=== PATIENT | male | born 1995 | race Caucasian/White ===

== ENCOUNTER 2016-06-12 10:10 | Emergency (ER) | payer OTHER ==
--- NOTE | 2016-06-12 11:50 | EDDOCDS ---
Nurse's Notes [facility] Name: Kai Barbosa Age: 20 yrs Sex: Male : 1995 Arrival Date: 06/12/2016 Time: 10:10 Bed Triage 2 Private MD: ALISSA FIORE Diagnosis: Jaw pain-post wisdom tooth extraction Presentation: 06/12 10:22 Presenting complaint: Patient states: Pt presents with severe dental pain since wisdom dls teeth removed last week at [facility]. Adult Sepsis Screening: The patient does not have new or worsening altered mentation. Patient's respiratory rate is less than 22. Systolic blood pressure is greater than 100. Patient has a qSOFA score of 0- Negative Sepsis Screen. Suicide/Homicide risk assessment- the patient denies having any suicidal and/or homicidal ideations and does not present with any other emotional, behavioral or mental health complaints. 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 Transition of care: patient was not received from another setting of care. 10:22 Acuity: BEN Level 4 dls 10:22 Method Of Arrival: Walkin/Carried/Asstd dls Triage Assessment: 10:24 General: Appears uncomfortable, well developed, well nourished, well groomed, Behavior dls is cooperative. Pain: Pain currently is 10 out of 10 on a pain scale. HIV screening NA for this visit Offered previously. Historical: - Allergies: no known allergies; - Home Meds: 1. none - PMHx: none; - PSHx: wisdom teeth; - Social history: Smoking status: Patient uses tobacco products, current some day smoker. No barriers to communication noted, The patient speaks fluent Australian. - Family history: Not pertinent. - : The pt / caregiver states he / she is not on anticoagulants. Home medication list is obtained from the patient. - Exposure Risk Screening:: None identified. Screenin:46 Screening information is obtained from the patient. Primary language is Australian. Fall mk4 risk: No risks identified. Assistance ADL's: requires no assistance with activities of daily living. Abuse/DV Screen: The patient / caregiver reports he/she is:. Nutritional screening: No deficits noted. Advance Directives: Currently, there is no health care proxy. There is no active DNR order. There is no living will. There is no Power of Automotive Fleet Supervisor. home support is adequate. Assessment: 11:46 General: Appears uncomfortable. Pain: Complains of pain in dental Pain currently is 10 mk4 out of 10 on a pain scale. Awake, alert, oriented. Skin warm and dry. Moves all extremities. Respirations unlabored. The patient / caregiver is instructed regarding the plan of care and ED course. Physical assessment to be completed by NAIF/DONNA. Vital Signs: 10:12 BP 129 / 95; Pulse 68; Resp 18; Temp 97(O); Pulse Ox 98% on R/A; Weight 83.91 kg (R); ct3 Height 5 ft. 9 in. (175.26 cm) (R); Pain 9/10; 10:12 Body Mass Index 27.32 (83.91 kg, 175.26 cm) ct3 Vitals: 10:12 Log In Time: June 12, 2016 at 10:09. ct3 ED Course: 10:11 Patient visited by Rosana Lua PCA. ct3 10:11 [facility] is Private Physician. ct3 10:11 Patient moved to Waiting ct3 10:12 Patient moved to Pre RCE ct3 10:24 Triage Initiated dls 11:13 Patient moved to Triage 2 kcs 11:14 Patient visited by Migdalia Mari RN. mk4 11:27 Enmanuel Santos PA-C is PHCP. ar2 11:27 Keyona Coughlin MD is Attending Physician. ar2 11:27 Patient visited by Enmanuel Santos PA-C. ar2 11:39 [facility]. ar2 11:39 [facility] is Referral Physician. ar2 11:46 Accompanied by Family Member. mk4 11:48 No IV's were initiated during this patient's visit. No procedures done that require mk4 assistance. Order Results: There are currently no results for this order. Outcome: 11:39 Discharge ordered by Provider. ar2 11:46 The following High Risk Discharge criteria are identified: None. Condition: good mk4 Condition: stable. Discharge instructions given to patient, Instructed on discharge instructions, follow up and referral plans. Demonstrated understanding of instructions, medications, Pt was receptive of discharge instructions/ teaching. Prescriptions given X 3. No special radiology studies were completed. 11:49 Discharge Assessment: patient administered narcotics - no. Property sent home with mk4 patient. 11:49 Patient left the ED. mk4 Signatures: Marlene Tapia, RN RN Charla Nino RN RN Enmanuel Mora PA-C PA-C ar2 Rosana Lua, MEAT PACKER MEAT PACKER ct3 Migdalia Mari RN RN mk4 MTDD
--- NOTE | 2016-06-12 11:50 | EDDOCDS ---
Physician Documentation [facility] Name: Kai Barbosa Age: 20 yrs Sex: Male : 1995 Arrival Date: 06/12/2016 Time: 10:10 Bed Triage 2 Private MD: ALISSA FIORE Disposition: 06/12/16 11:39 Discharged to Home/Self Care. Impression: Jaw pain - post wisdom tooth extraction. - Condition is Stable. - Discharge Instructions: Dental Extraction, Care After. - Prescriptions for Augmentin 875- 125 mg Oral Tablet - take 1 tablet by ORAL route every 12 hours for 10 days; 20 tablet. Ibuprofen 600 mg Oral Tablet - take 1 tablet by ORAL route every 6 hours As needed take with food; 30 tablet. [place] 5- 325 mg Oral Tablet - take 1 tablet by ORAL route every 6 hours As needed MDD: 4 tabs; 6 tablet. - Medication Reconciliation, Local Pharmacy Hours form. - Follow up: [facility]; When: 1 - 2 days; Reason: Recheck today's complaints. Follow up: [facility]; When: As needed; Reason: Recheck today's complaints. Follow up: Emergency Department; When: As needed; Reason: Fever > 102F, Trouble breathing, Worsening of conditions. - Problem is new. - Symptoms are unchanged. Historical: - Allergies: no known allergies; - Home Meds: 1. none - PMHx: none; - PSHx: wisdom teeth; - Social history: Smoking status: Patient uses tobacco products, current some day smoker. No barriers to communication noted, The patient speaks fluent Nepalese. - Family history: Not pertinent. - : The pt / caregiver states he / she is not on anticoagulants. Home medication list is obtained from the patient. - Exposure Risk Screening:: None identified. Vital Signs: 06/12 10:12 BP 129 / 95; Pulse 68; Resp 18; Temp 97(O); Pulse Ox 98% on R/A; Weight 83.91 kg / ct3 184.99 lbs (R); Height 5 ft. 9 in. (175.26 cm) (R); Pain 9/10; 10:12 Body Mass Index 27.32 (83.91 kg, 175.26 cm) ct3 MDM: 11:45 Financial registration complete. lg Signatures: Charla Melgar RN RN dls Ezra Campbell, Reg Reg lg Enmanuel Santos, PA-C PA-C ar2 Migdalia Mari, RN RN mk4 MTDD
--- NOTE | 2016-06-14 12:51 | EDDOCDS ---
Physician Documentation [facility] Name: Kai Barbosa Age: 20 yrs Sex: Male : 1995 Arrival Date: 06/12/2016 Time: 10:10 Bed Triage 2 Private MD: ALISSA FIORE Disposition: 06/12/16 11:39 Discharged to Home/Self Care. Impression: Jaw pain - post wisdom tooth extraction. - Condition is Stable. - Discharge Instructions: Dental Extraction, Care After. - Prescriptions for Augmentin 875- 125 mg Oral Tablet - take 1 tablet by ORAL route every 12 hours for 10 days; 20 tablet. Ibuprofen 600 mg Oral Tablet - take 1 tablet by ORAL route every 6 hours As needed take with food; 30 tablet. [place] 5- 325 mg Oral Tablet - take 1 tablet by ORAL route every 6 hours As needed MDD: 4 tabs; 6 tablet. - Medication Reconciliation, Local Pharmacy Hours form. - [facility]; When: 1 - 2 days; Reason: Recheck today's complaints. Follow up: [facility]; When: As needed; Reason: Recheck today's complaints. Follow up: Emergency Department; When: As needed; Reason: Fever > 102F, Trouble breathing, Worsening of conditions. - Problem is new. - Symptoms are unchanged. Historical: - Allergies: no known allergies; - Home Meds: 1. none - PMHx: none; - PSHx: wisdom teeth; - Social history: Smoking status: Patient uses tobacco products, current some day smoker. No barriers to communication noted, The patient speaks fluent Austrian. - Family history: Not pertinent. - : The pt / caregiver states he / she is not on anticoagulants. Home medication list is obtained from the patient. - Exposure Risk Screening:: None identified. Vital Signs: 06/12 10:12 BP 129 / 95; Pulse 68; Resp 18; Temp 97(O); Pulse Ox 98% on R/A; Weight 83.91 kg / ct3 184.99 lbs (R); Height 5 ft. 9 in. (175.26 cm) (R); Pain 9/10; 10:12 Body Mass Index 27.32 (83.91 kg, 175.26 cm) ct3 MDM: 11:45 Financial registration complete. 13:34 [facility] Payment Agreement was scanned into [employer] and attached to record. lg 06/13 12:46 T-Sheet-- Draft Copy was scanned into [employer] and attached to record. gb Signatures: Charla Melgar RN RN dls Zora Baird, Reg Reg gb Ezra Campbell, Reg Reg lg Enmanuel Santos, BE LR ar2 Migdalia Mari RN RN mk4 The chart was reviewed and I authenticate all verbal orders and agree with the evaluation and treatment provided.Attachments: 06/12 13:34 [facility] Payment Agreement lg 06/13 12:46 T-Sheet-- Draft Copy gb Chart Complete MTDD
--- NOTE | 2016-06-14 12:51 | EDDOCDS ---
Physician Documentation [facility] Name: Kai Barbosa Age: 20 yrs Sex: Male : 1995 Arrival Date: 06/12/2016 Time: 10:10 Bed Triage 2 Private MD: ALISSA FIORE Disposition: 06/12/16 11:39 Discharged to Home/Self Care. Impression: Jaw pain - post wisdom tooth extraction. - Condition is Stable. - Discharge Instructions: Dental Extraction, Care After. - Prescriptions for Augmentin 875- 125 mg Oral Tablet - take 1 tablet by ORAL route every 12 hours for 10 days; 20 tablet. Ibuprofen 600 mg Oral Tablet - take 1 tablet by ORAL route every 6 hours As needed take with food; 30 tablet. [place] 5- 325 mg Oral Tablet - take 1 tablet by ORAL route every 6 hours As needed MDD: 4 tabs; 6 tablet. - Medication Reconciliation, Local Pharmacy Hours form. - [facility]; When: 1 - 2 days; Reason: Recheck today's complaints. Follow up: [facility]; When: As needed; Reason: Recheck today's complaints. Follow up: Emergency Department; When: As needed; Reason: Fever > 102F, Trouble breathing, Worsening of conditions. - Problem is new. - Symptoms are unchanged. Historical: - Allergies: no known allergies; - Home Meds: 1. none - PMHx: none; - PSHx: wisdom teeth; - Social history: Smoking status: Patient uses tobacco products, current some day smoker. No barriers to communication noted, The patient speaks fluent Yemeni. - Family history: Not pertinent. - : The pt / caregiver states he / she is not on anticoagulants. Home medication list is obtained from the patient. - Exposure Risk Screening:: None identified. Vital Signs: 06/12 10:12 BP 129 / 95; Pulse 68; Resp 18; Temp 97(O); Pulse Ox 98% on R/A; Weight 83.91 kg / ct3 184.99 lbs (R); Height 5 ft. 9 in. (175.26 cm) (R); Pain 9/10; 10:12 Body Mass Index 27.32 (83.91 kg, 175.26 cm) ct3 MDM: 11:45 Financial registration complete. 13:34 [facility] Payment Agreement was scanned into [employer] and attached to record. lg 06/13 12:46 T-Sheet-- Draft Copy was scanned into [employer] and attached to record. gb Signatures: Charla Melgar RN RN dls Zora Baird, Reg Reg gb Ezra Campbell, Reg Reg lg Enmanuel Santos, BE LR ar2 Migdalia Mari RN RN mk4 The chart was reviewed and I authenticate all verbal orders and agree with the evaluation and treatment provided.Attachments: 06/12 13:34 [facility] Payment Agreement lg 06/13 12:46 T-Sheet-- Draft Copy gb Chart Complete MTDD
--- NOTE | 2016-06-14 12:51 | EDDOCDS ---
Nurse's Notes [facility] Name: Kai Barbosa Age: 20 yrs Sex: Male : 1995 Arrival Date: 06/12/2016 Time: 10:10 Bed Triage 2 Private MD: ALISSA FIORE Diagnosis: Jaw pain-post wisdom tooth extraction Presentation: 06/12 10:22 Presenting complaint: Patient states: Pt presents with severe dental pain since wisdom dls teeth removed last week at [facility]. Adult Sepsis Screening: The patient does not have new or worsening altered mentation. Patient's respiratory rate is less than 22. Systolic blood pressure is greater than 100. Patient has a qSOFA score of 0- Negative Sepsis Screen. Suicide/Homicide risk assessment- the patient denies having any suicidal and/or homicidal ideations and does not present with any other emotional, behavioral or mental health complaints. 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 Transition of care: patient was not received from another setting of care. 10:22 Acuity: BEN Level 4 dls 10:22 Method Of Arrival: Walkin/Carried/Asstd dls Triage Assessment: 10:24 General: Appears uncomfortable, well developed, well nourished, well groomed, Behavior dls is cooperative. Pain: Pain currently is 10 out of 10 on a pain scale. HIV screening NA for this visit Offered previously. Historical: - Allergies: no known allergies; - Home Meds: 1. none - PMHx: none; - PSHx: wisdom teeth; - Social history: Smoking status: Patient uses tobacco products, current some day smoker. No barriers to communication noted, The patient speaks fluent [place]. - Family history: Not pertinent. - : The pt / caregiver states he / she is not on anticoagulants. Home medication list is obtained from the patient. - Exposure Risk Screening:: None identified. Screenin:46 Screening information is obtained from the patient. Primary language is Citizen Of [place]. Fall mk4 risk: No risks identified. Assistance ADL's: requires no assistance with activities of daily living. Abuse/DV Screen: The patient / caregiver reports he/she is:. Nutritional screening: No deficits noted. Advance Directives: Currently, there is no health care proxy. There is no active DNR order. There is no living will. There is no Power of Tier And Detonator. home support is adequate. Assessment: 11:46 General: Appears uncomfortable. Pain: Complains of pain in dental Pain currently is 10 mk4 out of 10 on a pain scale. Awake, alert, oriented. Skin warm and dry. Moves all extremities. Respirations unlabored. The patient / caregiver is instructed regarding the plan of care and ED course. Physical assessment to be completed by NAIF/DONNA. Vital Signs: 10:12 BP 129 / 95; Pulse 68; Resp 18; Temp 97(O); Pulse Ox 98% on R/A; Weight 83.91 kg (R); ct3 Height 5 ft. 9 in. (175.26 cm) (R); Pain 9/10; 10:12 Body Mass Index 27.32 (83.91 kg, 175.26 cm) ct3 Vitals: 10:12 Log In Time: June 12, 2016 at 10:09. ct3 ED Course: 10:11 Patient visited by Rosana Lua PCA. ct3 10:11 [facility]. ct3 10:11 Patient moved to Waiting ct3 10:12 Patient moved to Pre RCE ct3 10:24 Triage Initiated dls 11:13 Patient moved to Triage 2 kcs 11:14 Patient visited by Migdalia Mari RN. mk4 11:27 Enmanuel Santos PA-C is PHCP. ar2 11:27 Keyona Coughlin MD is Attending Physician. ar2 11:27 Patient visited by Enmanuel Santos PA-C. ar2 11:39 [facility]. ar2 11:39 [facility] is Referral Physician. ar2 11:46 Accompanied by Family Member. mk4 11:48 No IV's were initiated during this patient's visit. No procedures done that require mk4 assistance. 13:31 Patient name changed from Benzie\S\\S\Chelsey\S\ to Benzie\S\Luke\S\Chelsey. EDMS 13:34 [facility] [place] [place] Payment Agreement was scanned into [employer] and attached to record. lg 06/13 12:46 T-Sheet-- Draft Copy was scanned into [employer] and attached to record. gb Order Results: There are currently no results for this order. Outcome: 02/13 11:39 Discharge ordered by Provider. ar2 11:46 The following High Risk Discharge criteria are identified: None. Condition: good mk4 Condition: stable. Discharge instructions given to patient, Instructed on discharge instructions, follow up and referral plans. Demonstrated understanding of instructions, medications, Pt was receptive of discharge instructions/ teaching. Prescriptions given X 3. No special radiology studies were completed. 11:49 Discharge Assessment: patient administered narcotics - no. Property sent home with mk4 patient. 11:49 Patient left the ED. mk4 Signatures: Dispatcher [employer] EDMS Marlene Tapia, RN RN Charla Nino RN RN dls Zora Baird, Reg Reg gb Ezra Campbell, Reg Reg lg Enmanuel Santos PARoya PARoya ar2 Rosana Lua, [employer] NURSERY HAND ct3 Migdalia Mari, RN RN mk4 Chart Complete MTDD
== END 2016-06-12 11:49 | disposition home or self-care (01) ==
LOC: M ED 10:10
DX: R68.84 Jaw pain (principal); Z98.818 Other dental procedure status; F17.210 Nicotine dependence, cigarettes, uncomplicated